=== PATIENT | male | born 1985 | race American Indian/Alaskan Native ===

== ENCOUNTER 2018-05-08 04:23 | Emergency (ER) | payer SELFPAY ==
[2018-05-08 04:34] VITALS: BP 117/74
--- NOTE | 2018-05-08 06:40 | Emergency Department Report ---
Upper Extremity - HPI Chief Complaint: Extremity Injury, Upper Stated Complaint: LT WRIST PAIN Time Seen by Provider: 05/08/18 06:19 Occurred When: >5 Days (3 years) Mechanism: Unsure Severity: severe Symptoms: Yes Pain with Movement, No Deformity, No Limited Range of Movement, No Numbness, No Weakness, No Swelling, No Bruising/Ecchymosis, No Laceration or Abrasion Other History: 32-year-old -Portuguese male presents to the emergency room for left wrist pain 3 years. Patient reports pain from wrist to bit of arm 8 out of 10 and has taken Tylenol and BC powders. Lasted medicine was yesterday at 2 PM. Patient denies any injuries to wrist. 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 ED Review of Systems ROS: Stated complaint: LT WRIST PAIN Other details as noted in HPI Comment: All other systems reviewed and negative Musculoskeletal: arthralgia (left wrist) ED Past Medical Hx - Past Medical History Previous Medical History?: No - Surgical History Past Surgical History?: No - Social History Smoking Status: Current Every Day Smoker Substance Use Type: Alcohol, Marijuana - Medications Home Medications: Home Medications Medication Instructions Recorded Confirmed Last Taken Type Ibuprofen [Motrin 600 MG tab] 600 mg PO Q8H PRN #30 tablet 05/08/18 Unknown Rx Upper Extremity Exam - Exam General: Vital signs noted. No distress. Alert and acting appropriately. Shoulder Exam: Yes Normal Range of Motion in Shoulder, No Shoulder Tenderness, No Clavicle Tenderness, No Shoulder Deformity, No AC Joint Tenderness Arm Exam: No Arm/Humerus Tenderness, No Arm Deformity Elbow: No Elbow Tenderness, No Normal Range of Motion in Elbow, No Elbow Deformity Forearm: Yes Pain with Supination, No Forearm Tenderness, No Forearm Deformity Wrist: Yes Normal ROM in Wrist, No Wrist Tenderness, No Wrist Deformity, No Snuffbox Tenderness, No Pain with Axial Thumb Compression Hand: Yes Normal ROM in Digit(s), No Hand Tenderness, No Hand Deformity, No Digit Tenderness, No Digit(s) Deformity, No Tendon Dysfunction CMS Exam: No Broken Skin, No Normal Distal Pulses, No Normal Capillary Refill, No Normal Distal Sensation ED Course Vital Signs 05/08/18 04:29 Temperature 98.1 F Pulse Rate 68 Respiratory 18 Rate Blood Pressure 117/74 O2 Sat by Pulse 98 Oximetry ED Medical Decision Making - Medical Decision Making Patient has been evaluated by this provider in fast track. Patient be given ibuprofen 600 mg for pain management This is a non-traumatic pain. Patient will be discharged ibuprofen 600 mg every 6-8 hours as needed. Referral to orthopedist will be placed on discharge paperwork. Critical care attestation.: If time is entered above; I have spent that time in minutes in the direct care of this critically ill patient, excluding procedure time. ED Disposition Clinical Impression: Wrist pain, chronic Qualifiers: Laterality: left Qualified Code(s): M25.532 - Pain in left wrist; G89.29 - Other chronic pain Disposition: TO HOME OR SELFCARE Is pt being admited?: No Does the pt Need Aspirin: No Condition: Stable Additional Instructions: Please take pain medication as prescribed. Please follow up with orthopedist I have listed their information below for your convenience. Prescriptions: Ibuprofen [Motrin 600 MG tab] 600 mg PO Q8H PRN #30 tablet PRN Reason: Pain , Severe (7-10) Referrals: PRIMARY CAREMD [Primary Care Provider] - 3-5 Days CHRIS RUSSELL MD [Staff Physician] - 3-5 Days Forms: Work/School Release Form(ED), Accompanied Note
[2018-05-08] MEDS ORDERED: IBUPROFEN PO ONE (06:41)
== END 2018-05-08 06:52 | disposition home or self-care (01) ==
LOC: ED 04:23
DX: M25.532 Pain in left wrist (principal); G89.29 Other chronic pain; F17.200 Nicotine dependence, unspecified, uncomplicated; F12.10 Cannabis abuse, uncomplicated
CPT/HCPCS: 99282